=== PATIENT | female | born 1995 | race Caucasian/White ===

== ENCOUNTER 2019-03-19 01:29 | Emergency (ER) | payer SELFPAY ==
[~2019-03-19] VITALS: Ht 162.6 cm; Wt 74.3 kg
[2019-03-19 01:32] VITALS: Ht 162.6 cm; Wt 74.3 kg
[2019-03-19] MEDS ORDERED: KETOROLAC 30 MG INJ IM STA (02:24)
[2019-03-19] MEDS ORDERED: LIDOCAINE/MYLANTA 40 ML BTL PO ONE (02:30)
[2019-03-19] MEDS ORDERED: ACET-141 PO (04:11)
[2019-03-19] MEDS ORDERED: ONDA4TAB14 PO (04:11)
[2019-03-19] MEDS ORDERED: MAG-19 PO (04:11)
--- NOTE | 2019-03-19 04:12 | ERD ---
ER Documentation Chief Complaint Chief Complaint abd pain x 1 week, also c/o diarrhea ROS All systems reviewed and are negative except as per history of present illness. Medications Home Meds Active Scripts Ondansetron (Ondansetron Odt) 4 Mg Tab.rapdis, 4 MG PO Q6H PRN for NAUSEA AND/OR VOMITING, #15 TAB Prov:MALGORZATA HIGH DO 03/19/19 Acetaminophen* (Acetaminophen*) 500 MG Extra Strength Tablet, 500 MG PO Q4H PRN for PAIN AND OR ELEVATED TEMP, #30 TAB Prov:MALGORZATA HIGH DO 03/19/19 Magaldrate/Simethicone* (Mylanta*) 355 Ml Susp, 30 ML PO QID PRN for GA STROINTESTINAL UPSET for 7 Days, #1 BOTTLE Prov:MALGORZATA HIGH DO 03/19/19 Allergies Allergies: Coded Allergies: No Known Drug Allergies (Verified Allergy, Unknown, 03/19/19) PMhx/Soc Medical and Surgical Hx: pt denies Medical Hx, pt denies Surgical Hx Hx Miscellaneous Medical Probl: No (NO MED HX) Hx Alcohol Use: No Hx Substance Use: No Hx Tobacco Use: No Smoking Status: Never smoker Physical Exam Vitals Vital Signs Date Temp Pulse Resp B/P (MAP) Pulse Ox O2 O2 Flow FiO2 Time Delivery Rate 03/19/19 99.6 108 20 118/68 98 01:32 (85) Physical Exam Const: No acute distress Head: Atraumatic Eyes: Normal Conjunctiva ENT: Normal External Ears, Nose and Mouth. Neck: Full range of motion. No meningismus. Resp: Clear to auscultation bilaterally Cardio: Regular rate and rhythm, no murmurs Abd: Soft, non tender, non distended. Normal bowel sounds Skin: No petechiae or rashes Back: No midline or flank tenderness Ext: No cyanosis, or edema Neur: Awake and alert Psych: Normal Mood and Affect Result Diagram: 03/19/19 0242 03/19/19 0243 Results 24 hrs Laboratory Tests Test 03/19/19 02:42 03/19/19 02:43 03/19/19 02:44 03/19/19 02:45 White Blood Count 10.4 10^3/ul Red Blood Count 4.26 10^6/ul Hemoglobin 13.1 g/dl Hematocrit 38.6 % Mean Corpuscular 90.6 fl Volume Mean Corpuscular 30.8 pg Hemoglobin Mean Corpuscular 33.9 g/dl Hemoglobin Concen t Red Cell 11.9 % Distribution Width Platelet Count 259 10^3/UL Mean Platelet 8.8 fl Volume Immature 0.300 % Granulocytes % Neutrophils % 85.1 % Lymphocytes % 9.1 % Monocytes % 5.2 % Eosinophils % 0.0 % Basophils % 0.3 % Nucleated Red 0.0 /100WBC Blood Cells % Immature 0.030 10^3/ul Granulocytes # Neutrophils # 8.9 10^3/ul Lymphocytes # 1.0 10^3/ul Monocytes # 0.5 10^3/ul Eosinophils # 0.0 10^3/ul Basophils # 0.0 10^3/ul Nucleated Red 0.0 10^3/ul Blood Cells # Sodium Level 138 mmol/L Potassium Level 3.9 mmol/L Chloride Level 101 mmol/L Carbon Dioxide 25 mmol/L Level Anion Gap 12 Blood Urea 7 mg/dl Nitrogen Creatinine 0.57 mg/dl Est Glomerular > 60 mL/min Filtrat Rate mL/min Glucose Level 120 mg/dl Calcium Level 9.0 mg/dl Total Bilirubin 0.6 mg/dl Direct Bilirubin 0.00 mg/dl Indirect 0.6 mg/dl Bilirubin Aspartate Amino 23 IU/L Transf (AST/SGOT) Alanine 21 IU/L Aminotransferase (ALT/SGPT) Alkaline 76 IU/L Phosphatase Total Protein 7.6 g/dl Albumin 4.3 g/dl Globulin 3.30 g/dl Albumin/Globulin 1.30 Ratio Lipase 66 U/L POC Beta HCG, NEGATIVE Qualitative Urine Color YELLOW Urine Clarity CLEAR Urine pH 5.0 Urine Specific 1.010 [place] Urine Ketones NEGATIVE mg/dL Urine Nitrite NEGATIVE mg/dL Urine Bilirubin NEGATIVE mg/dL Urine NEGATIVE mg/dL Urobilinogen Urine Leukocyte NEGATIVE Wild/ul Esterase Urine Microscopic 2 /HPF RBC Urine Microscopic 0 /HPF WBC Urine Bacteria FEW /HPF Urine Hemoglobin 3+ mg/dL Urine Glucose NEGATIVE mg/dL Urine Total NEGATIVE mg/dl Protein Current Medications Medications Dose Sig/Misti Start Time Status Last (Trade) Ordered Route PRN Stop Time Admin Dose Reason Admin Ketorolac 30 mg ONCE STAT 03/19/19 DC 03/19/19 Tromethamine IM 02:24 02:48 (Toradol) 03/19/19 02:26 40 ml ONCE ONCE 03/19/19 DC 03/19/19 Miscellaneous PO 02:30 02:48 Medication 03/19/19 02:31 (Gi Cocktail (2)) Departure Diagnosis: Primary Impression: Abdominal pain Abdominal location: epigastric Qualified Codes: R10.13 - Epigastric pain Condition: Fair Patient Instructions: Abdominal Pain Referrals: [facility] YOU HAVE RECEIVED A MEDICAL SCREENING EXAM AND THE RESULTS INDICATE THAT YOU DO NOT HAVE A CONDITION THAT REQUIRES URGENT TREATMENT IN THE EMERGENCY DEPARTMENT. FURTHER EVALUATION AND TREATMENT OF YOUR CONDITION CAN WAIT UNTIL YOU ARE SEEN IN YOUR DOCTORS OFFICE WITHIN THE NEXT 1-2 DAYS. IT IS YOUR RESPONSIBILITY TO MAKE AN APPOINTMENT FOR FOLOW-UP CARE. IF YOU HAVE A PRIMARY DOCTOR --you should call your primary doctor and schedule an appointment IF YOU DO NOT HAVE A PRIMARY DOCTOR YOU CAN CALL OUR PHYSICIAN REFERRAL HOTLINE AT IF YOU CAN NOT AFFORD TO SEE A PHYSICIAN YOU CAN CHOSE FROM THE FOLLOWING [facility] [address] [facility]. [facility] [address] [facility] [facility] [address] [facility] [address] [facility]. [place] [address] [facility]. [facility]. [address] Additional Instructions: Call your primary care doctor TOMORROW for an appointment during the next 1-2 days.See the doctor sooner or return here if your condition worsens before your appointment time. MALGORZATA HIGH DO Mar 19, 2019 04:12
[2019-03-19 04:15] VITALS: BP 119/59; PULSE 104; RESP 18
== END 2019-03-19 04:15 | disposition home or self-care (01) ==
LOC: FTE 01:29
DX: R10.13 Epigastric pain (principal)
CPT/HCPCS: 36415; 80053; 81001; 81025; 83690; 85025; 96372; 99284; J1885